=== PATIENT | male | born 1990 | race Caucasian/White ===

== ENCOUNTER 2023-01-24 12:35 | Emergency (ER) | payer SELFPAY ==
[2023-01-24 12:53] VITALS: BP 120/72; PULSE 78; RESP 18; TEMP 99; BMI 26.2
[2023-01-24] MEDS ORDERED: IBUPROFEN 400 MG TABLET (FP) PO ONE ×2 (13:51→13:58)
== END 2023-01-24 14:04 | disposition home or self-care (01) ==
LOC: JER 12:35
DX: S39.012A Strain of muscle, fascia and tendon of lower back, initial encounter (principal); X50.3XXA Overexertion from repetitive movements, initial encounter; Y99.0 Civilian activity done for income or pay
CPT/HCPCS: 99282-25